=== PATIENT | male | born 1955 | race Two or more races ===

== ENCOUNTER 2020-05-05 10:26 | Outpatient (CLI) | payer OTHER | END 2020-05-05 10:35 | disposition home or self-care (01) | LOC: LAB 10:26 | PROVIDERS: ATTEND Urology | DX: C61 Malignant neoplasm of prostate (principal); N30.00 Acute cystitis without hematuria; D68.0 Von Willebrand disease; I10 Essential (primary) hypertension; Z01.810 Encounter for preprocedural cardiovascular examination; Z01.812 Encounter for preprocedural laboratory examination; Z01.811 Encounter for preprocedural respiratory examination ==

== ENCOUNTER 2020-05-14 14:45 | Inpatient (IN) | payer OTHER ==
[~2020-05-14] VITALS: Ht 165.1 cm; Wt 81.2 kg
[2020-05-20] MEDS ORDERED: ATORVASTATIN CA20 MG (07:45)
[2020-05-20] MEDS ORDERED: [UNRECOGNIZED DRUG - OTHER] (07:45)
[2020-05-20] MEDS ORDERED: LEVOTHYROXINE25 MC1 (07:46)
[2020-05-20] MEDS ORDERED: FAMOTIDINE20 MG (07:46)
[2020-05-20] MEDS ORDERED: VITAMIN C WIT1000 MG (07:46)
[2020-05-20] MEDS ORDERED: DOXAZOSIN MESYLA2 MG (07:46)
[2020-05-20] MEDS ORDERED: CLOTRIMAZOLE-BE15 G1 (07:46)
[2020-05-20] MEDS ORDERED: TAMSULOSIN HCL0.4 MG (07:46)
[2020-05-20] MEDS ORDERED: ALLERGY RELIEF10 M1 (07:47)
== END 2020-05-22 09:32 | disposition home or self-care (01) | DRG 708 ==
LOC: SURG 05-20 05:35 → O/R 05-20 05:35 → SURH 05-20 07:00 → SURG 05-20 14:21
PROVIDERS: ADMIT Urology; ATTEND Urology
PROC: 0VT00ZZ Resection of Prostate, Open Approach (ICD-10-PCS; 2020-05-20)
PROC: 0VT30ZZ Resection of Bilateral Seminal Vesicles, Open Approach (ICD-10-PCS; 2020-05-20)
PROC: 07TC0ZZ Resection of Pelvis Lymphatic, Open Approach (ICD-10-PCS; principal; 2020-05-20 07:00)
DX: C61 Malignant neoplasm of prostate (principal); Z20.828 Contact with and (suspected) exposure to other viral communicable diseases